=== PATIENT | female | born 1960 | race Caucasian/White ===

== ENCOUNTER → 2016-05-08 | Outpatient (CLI) | payer OTHER ==
--- NOTE | 2016-05-08 17:10 | DI ---
MRI LUMBAR SPINE SCAN WITHOUT IV CONTRAST, 05/08/2016 10:46 AM: Clinical History: Low back pain. Previous Exam: 09/09/2013. Technique: Sagittal and axial T2 weighted; sagittal T1 weighted and T2 STIR; and axial PD. The vertebral bodies are of normal height and size. There is disc space narrowing at T10-11 and T11-1 2. The lumbar disc spaces are of normal height. The disc spaces show marked desiccation change at T10 -11 and T11-12, with the remaining disc spaces showing moderate desiccation change. The cord terminat es at T12 and the conus medullaris is normal. There are circumferentially bulging but not herniated d iscs without canal or neural foraminal stenosis at T10-11 and T11-12. The T12-L1 through L2-3 disc sp aces are normal. L3-4 has a right lateral bulging but not herniated disc without canal or neural fora mo stenosis. L4-5 has a circumferentially bulging but not herniated disc without canal or neural f oraminal stenosis. There is a minimal grade 1 spondylolisthesis with hypertrophic degenerative change s of the apophyseal joints. L5-S1 has a focal right lateral bulging but not herniated disc without ca nal or neural foraminal stenosis. There are hypertrophic degenerative changes in both apophyseal join ts. Readin. There are bulging but not herniated discs without canal or neural foraminal stenosis at T10-11, T 11-12, and L3-4 through L5-S1. 2. L4-5 has a minimal grade 1 spondylolisthesis. Hypertrophic degenerative changes are present bilat erally in the apophyseal joints at L4-5 and L5-S1. 3. The disc spaces at T12-L1 through L2-3 are normal.
--- NOTE | 2016-05-08 17:12 | DI ---
LUMBAR SPINE SERIES, 05/08/2016 10:46 AM: Clinical History: Low back pain. Previous Exam: 03/30/2013. 3 routine upright views are submitted. The vertebral bodies are of normal height and size. The disc s paces are normal in height. There is a minimal grade 1 spondylolisthesis at L4-5 with degenerative ar thritic changes bilaterally between L4-5 and L5-S1. The pedicles and remaining posterior elements are normal. Both SI joints are normal. Readin. There is a minimal grade 1 spondylolisthesis at L4-5 without apparent disc space narrowing. 2. Degenerative arthritic changes are present in the apophyseal joints bilaterally at L4-5 and L5-S1 .
== END ==
LOC: MRI 10:38
PROVIDERS: ATTEND Orthopaedic Surgery
DX: M50.20 Other cervical disc displacement, unspecified cervical region (principal); M43.16 Spondylolisthesis, lumbar region
CPT/HCPCS: 72100; 72148